=== PATIENT | male | born 1980 | race Caucasian/White ===

== ENCOUNTER 2018-07-28 07:05 | Inpatient (IN) | payer MEDICAID ==
[2018-07-28 07:52] LABS: ADD MAN DIFF? NO
[2018-07-28 07:55] LABS: BASOPHILS % 0.2 % (0.0-2.0); EOSINOPHILS % 0.1 % (0.0-7.0); HEMOGLOBIN 13.7 g/dl (14.0-18.0); LYMPHOCYTES % 8.1 % (15.0-51.0); MEAN CORPUSCULAR HEMOGLOBIN 28.4 pg (29.0-33.0); MEAN CORPUSCULAR HGB CONC 32.6 g/dl (32.0-37.0); MEAN CORPUSCULAR VOLUME 87.1 fl (82.0-101.0); MONOCYTE # 0.4 10^3/ul (0.3-0.9); MONOCYTES % 3.3 % (0.0-11.0); NEUTROPHIL # 11.3 10^3/ul (1.6-7.5); PLATELET COUNT 177 10^3/UL (140-415); RED BLOOD COUNT 4.82 10^6/ul (4.70-6.10); RED CELL DISTRIBUTION WIDTH 12.7 % (11.5-14.5)
[2018-07-28 07:55] LABS: WHITE BLOOD COUNT 12.8 10^3/ul (4.8-10.8)
[2018-07-28 07:58] LABS: ADD UMIC NO; UR ASCORBIC ACID NEGATIVE (NEGATIVE); UR BILIRUBIN (Dip) NEGATIVE (NEGATIVE); UR BLOOD (Dip) NEGATIVE (NEGATIVE); UR CLARITY CLEAR (CLEAR); UR COLOR YELLOW (YELLOW); UR GLUCOSE (Dip) NEGATIVE (NEGATIVE); UR KETONES (Dip) NEGATIVE (NEGATIVE); UR LEUKOCYTE ESTERASE (Dip) NEGATIVE Leu/ul (NEGATIVE); UR NITRITE (Dip) NEGATIVE (NEGATIVE); UR SPECIFIC GRAVITY (Dip) 1.021 (1.003-1.030); UR TOTAL PROTEIN (Dip) NEGATIVE (NEGATIVE); UR UROBILINOGEN (Dip) NEGATIVE (NEGATIVE)
[2018-07-28] MEDS: ONDANSETRON (ODT) 4 MG TAB ODT (08:09)
[2018-07-28 08:34] LABS: ALANINE AMINOTRANSFERASE 10 IU/L (13-69); ALBUMIN 4.8 g/dl (3.3-4.9); ALBUMIN/GLOBULIN RATIO 1.54; ALKALINE PHOSPHATASE 65 IU/L (42-121); ANION GAP 10 (5-13); ASPARTATE AMINO TRANSFERASE 29 IU/L (15-46); BILIRUBIN,INDIRECT 0.2 mg/dl (0-1.1); BILIRUBIN,TOTAL 0.2 mg/dl (0.2-1.3); BLOOD UREA NITROGEN 13 mg/dl (7-20); CALCIUM 9.5 mg/dl (8.4-10.2); CARBON DIOXIDE 27 mmol/L (21-31); CHLORIDE 103 mmol/L (97-110); CREATININE 0.85 mg/dl (0.61-1.24); Estimated GFR > 60 mL/min (>60); GLUCOSE 126 mg/dl (70-220); LIPASE 33 U/L (23-300); POTASSIUM 4.6 mmol/L (3.5-5.1); SODIUM 140 mmol/L (135-144); TOTAL PROTEIN 7.9 g/dl (6.1-8.1)
[2018-07-28] MEDS: SOD CHLORIDE 0.9% 1,000 ML IV ×3 (08:45→19:51)
[2018-07-28] MEDS: morphine 4 MG/ML VIAL IV (08:48)
[2018-07-28] MEDS: ONDANSETRON 4 MG INJ IV ×2 (08:48→22:13)
[2018-07-28] MEDS: PIPER-TAZO 3.375 GM IV (PMX) 100 ML IVPB ×4 (08:51→23:24)
[2018-07-28] MEDS ORDERED: ACETAMINOPHEN 325 MG TAB PO (09:00)
[2018-07-28] MEDS ORDERED: ONDANSETRON 4 MG INJ IV ×3 (09:00→22:00)
[2018-07-28] MEDS ORDERED: NACL 0.9% 3 ML SYG IV (10:00)
[2018-07-28] MEDS ORDERED: morphine SULFATE/PF (2 MG/2 ML) SYG IV (10:30)
[2018-07-28] MEDS ORDERED: ROPIVACAINE 0.5 % 30 ML VIAL (20:44)
[2018-07-28] MEDS ORDERED: MIDAZOLAM 1 MG/ML 2 ML INJ (20:44)
[2018-07-28] MEDS ORDERED: ROCURONIUM 50 MG INJ ×2 (20:44→21:25)
[2018-07-28] MEDS ORDERED: METOCLOPRAMIDE 10 MG INJ (20:44)
[2018-07-28] MEDS ORDERED: PROPOFOL 20 ML (20:44)
[2018-07-28] MEDS ORDERED: ONDANSETRON 4 MG INJ (20:44)
[2018-07-28] MEDS ORDERED: KETOROLAC 30 MG INJ (20:44)
[2018-07-28] MEDS ORDERED: NEOSTIGMINE 3 MG/3 ML SYRINGE ×2 (21:25→22:15)
[2018-07-28] MEDS ORDERED: GLYCOPYRROLATE 0.4 MG INJ (21:25)
[2018-07-28] MEDS ORDERED: DIPHENHYDRAMINE 50 MG INJ IV (21:30)
[2018-07-28] MEDS ORDERED: HYDROmorphONE 1 MG/5 ML IV SYRINGE IV ×3 (21:30)
[2018-07-28] MEDS: BUPIVACAINE 0.5%/EPI (SDV) 30 ML INJ (21:32)
[2018-07-28] MEDS ORDERED: SUGAMMADEX SODIUM 200 MG/2 ML VIAL IV (21:55)
[2018-07-28] MEDS ORDERED: KETOROLAC 30 MG INJ IV (22:00)
[2018-07-28] MEDS: MEPERIDINE 25 MG INJ IV (22:12)
[2018-07-28] MEDS: D5W-0.45 NACL + KCL 20 MEQ 1,000 ML IV (23:24)
[2018-07-29] MEDS: HYDROmorphONE 0.5 MG/0.5 ML SYG IV (01:40)
[2018-07-29] MEDS: SOD CHLORIDE 0.9% 1,000 ML IV (05:14)
[2018-07-29 05:29] LABS: ADD MAN DIFF? NO
[2018-07-29 05:37] LABS: WHITE BLOOD COUNT 10.1 10^3/ul (4.8-10.8)
[2018-07-29 05:37] LABS: BASOPHILS % 0.1 % (0.0-2.0); EOSINOPHILS % 0.1 % (0.0-7.0); HEMOGLOBIN 11.8 g/dl (14.0-18.0); LYMPHOCYTES # 2.2 10^3/ul (0.8-2.9); MEAN CORPUSCULAR HEMOGLOBIN 28.6 pg (29.0-33.0); MEAN CORPUSCULAR HGB CONC 32.8 g/dl (32.0-37.0); MEAN CORPUSCULAR VOLUME 87.4 fl (82.0-101.0); MEAN PLATELET VOLUME 9.6 fl (7.4-10.4); MONOCYTE # 0.7 10^3/ul (0.3-0.9); MONOCYTES % 6.5 % (0.0-11.0); NEUTROPHIL # 7.2 10^3/ul (1.6-7.5); PLATELET COUNT 167 10^3/UL (140-415); RED BLOOD COUNT 4.12 10^6/ul (4.70-6.10); RED CELL DISTRIBUTION WIDTH 12.9 % (11.5-14.5)
[2018-07-29 05:50] LABS: HEMOGLOBIN A1C 5.4 % (0-5.9)
[2018-07-29 06:00] LABS: ALANINE AMINOTRANSFERASE 17 IU/L (13-69); ALBUMIN 3.7 g/dl (3.3-4.9); ALBUMIN/GLOBULIN RATIO 1.32; ALKALINE PHOSPHATASE 38 IU/L (42-121); ANION GAP 10 (5-13); ASPARTATE AMINO TRANSFERASE 17 IU/L (15-46); BILIRUBIN,INDIRECT 0.6 mg/dl (0-1.1); BILIRUBIN,TOTAL 0.6 mg/dl (0.2-1.3); BLOOD UREA NITROGEN 11 mg/dl (7-20); CALCIUM 8.7 mg/dl (8.4-10.2); CARBON DIOXIDE 26 mmol/L (21-31); CHLORIDE 105 mmol/L (97-110); CREATININE 0.96 mg/dl (0.61-1.24); Estimated GFR > 60 mL/min (>60); GLUCOSE 111 mg/dl (70-220); MAGNESIUM 1.9 mg/dl (1.7-2.5); PHOSPHORUS 4.3 mg/dl (2.5-4.9); POTASSIUM 4.5 mmol/L (3.5-5.1); SODIUM 141 mmol/L (135-144); TOTAL PROTEIN 6.5 g/dl (6.1-8.1)
[2018-07-29] MEDS: PIPER-TAZO 3.375 GM IV (PMX) 100 ML IVPB ×2 (06:27→12:56)
[2018-07-29] MEDS: ENOXAPARIN 40 MG/0.4 ML SYG SC (06:28)
== END 2018-07-29 14:49 | disposition home or self-care (01) | DRG 343 ==
LOC: FTE 07:05 → MS1 08:39
PROC: 0DTJ4ZZ Resection of Appendix, Percutaneous Endoscopic Approach (ICD-10-PCS; principal; 2018-07-28 19:00)
DX: K35.80 Unspecified acute appendicitis (principal)
CPT/HCPCS: 36415; 74176; 80053; 81003; 83036; 83690; 83735; 84100; 84443; 85025; 88304; 96374; 99285-25